=== PATIENT | male | born 1935 | race Caucasian/White ===

== ENCOUNTER 2017-02-02 05:43 | Day surgery (SDC) | payer OTHER, BC ==
[~2017-02-02] VITALS: Ht 182.9 cm; Wt 92.5 kg
--- NOTE | ~2017-02-02 | S ---
[facility] [place] [address] SURGICAL PATH RPT PROCEDURE Name: NAVIN HATFIELD Room #: DEP [facility]..#: [id number] Admission: 02/02/17 Date of : 35 Discharge: 02/02/17 Report #: [id number] Path Case #: [id number] PATHOLOGY REPORT COLLECTION DATE: 02/02/2017 RECEIVED DATE: 02/02/2017 SUBMITTING PHYS: Dr. Franco Gaytan OTHER PHYS: Dr. Kwame Willard SPECIMEN(S) RECEIVED: A.Basal cell carcinoma left lower lid * * * * * * * * * * * * FINAL DIAGNOSIS: Skin, left lower lid, excision: - SQUAMOUS CELL CARCINOMA IN SITU. - Margins of resection free of malignancy. (IUV:mgr; 02/04/2017) PATHOLOGIST: Melia Donohue M.D. REPORT ELECTRONICALLY SIGNED BY: Melia Donohue M.D. DATE/TIME: 02/04/2017 15:59 * * * * * * * * * * * * GROSS PATHOLOGY: The specimen is received fresh labeled "Navin Hatfield, basal cell carcinoma left lower lid" consists of a piece of skin that measures 0.6 x 0.4 x 0.2 cm. It is oriented by Dr. Gaytan as superior, inferior, lateral and medial. The superior margin is inked red, inferior is yellow, lateral is blue, and medial is green, and the deep is black. The specimen is serially sectioned and submitted for a frozen section as FSA1, subsequently as cassette labeled A1. ([facility]; 02/02/2017) FROZEN SECTION DIAGNOSIS: (Any Sanchez M.D.) FSA1, Skin, "Basal cell carcinoma left lower lid": - Margins free. These findings were discussed with Dr. Gaytan, and a written report was placed in the patient's chart. ([facility]:mg; 02/02/2017) Testing performed by [facility] at [facility] [address] [place] [address] [place] [address] SURGICAL PATH RPT PROCEDURE Name: NAVIN HATFIELD [id number] Admission: 02/02/17 Date of : 35 Discharge: 02/02/17 Report #: [id number] Path Case #: [id number] CLINICAL HISTORY: Basal cell carcinoma left lower lid INITIAL CPT CODE(S): A; 85392, 53836 Professional services performed by [facility] at [facility] [address] [place] [address] Technical services performed by [facility] at [address] [place] [address], [place] [address]. [facility] [address] [place] [address] PHONE: [phone] DIRECTOR: Severiano Anton M.D. * * * END OF REPORT * * *
[~2017-02-02 05:43] MED LIST: ADVAIR 250-501 EACH INH; ARAVA20 MG PO; AZELASTINE137 MCG/0. NASAL; CALCIUM 500 +1 EAC5 PO; DAILY MULTIPLE1 EACH PO; FLOMAX0.4 MG PO; LOSARTAN-HCTZ1 EAC2 PO; PREDNISONE 5 MG5 M1 PO; PRESERVISION A1 EAC2 PO; VITAMIN D3400 UNIT PO; VITAMINC500 PO
[2017-02-02 11:45] LABS: CALCIUM 9.1 mg/dL (8.5-10.1); CREATININE 0.9 mg/dL (0.7-1.3); POTASSIUM 4.1 mmol/L (3.5-5.1)
[2017-02-02 12:41] VITALS: BP 138/85
== END 2017-02-02 11:00 | disposition home or self-care (01) ==
LOC: TBA 05:43 → OR 05:43 → TBA 05:44 → OR 08:25
PROVIDERS: Ophthalmology
DX: D04.12 Carcinoma in situ of skin of left eyelid, including canthus (principal); H02.005 Unspecified entropion of left lower eyelid; I10 Essential (primary) hypertension; E78.5 Hyperlipidemia, unspecified; J44.9 Chronic obstructive pulmonary disease, unspecified; M06.9 Rheumatoid arthritis, unspecified; M81.0 Age-related osteoporosis without current pathological fracture; Z85.53 Personal history of malignant neoplasm of renal pelvis; Z98.41 Cataract extraction status, right eye; Z98.42 Cataract extraction status, left eye; Z96.1 Presence of intraocular lens; Z98.890 Other specified postprocedural states; Z87.891 Personal history of nicotine dependence; Z79.899 Other long term (current) drug therapy
CPT/HCPCS: 50010; 50101; 50386; 50398; 51636; 56527; 56531; 62110; 62850; 70005

== ENCOUNTER 2017-10-19 05:35 | Day surgery (SDC) | payer OTHER, BC ==
[~2017-10-19] VITALS: Ht 180.3 cm; Wt 92.5 kg
--- NOTE | ~2017-10-19 | O ---
[facility] [place] [address] OPERATIVE REPORT Name: TOY LOVE Room #: DEP [facility].#: [id number] Admission: 10/19/17 Attend Phys: Franco Gaytan MD Discharge: 10/19/17 Date of : 35 Report #: [id number] THIS REPORT FOR: //name// CC: JOURDAN Gaytan DATE OF SERVICE: 10/19/2017 PREOPERATIVE DIAGNOSIS: Tumor of left lower lid and cheek. POSTOPERATIVE DIAGNOSIS: Tumor of left lower lid and cheek. PROCEDURE: Excision of tumor of left lower lid and cheek with frozen sections and myocutaneous flap repair of defect. SURGEON: Franco Gaytan M.D. KAIAKO KURA TUARUA: None. ANESTHESIA: MAC. COMPLICATIONS: None. INDICATIONS FOR SURGERY: This pleasant is an 82-year-old gentleman, has a nodular ulcerative lesion in his left lower lid just inferior to a prior basal cell resection. He presents today for excision of this lesion, which is presumed to be another basal cell carcinoma. Frozen sections are planned in addition to repair of the defect with a myocutaneous flap. Informed consent was obtained to include but not limited to potential risk for loss of vision, bleeding, infection, failure to improve the problem and the potential need for further surgery or treatment. DESCRIPTION OF PROCEDURE: The patient was taken to the operating room where 2% Xylocaine with epinephrine mixed with equal parts of 0.75% Marcaine with Wydase was administered transcutaneously to the left medial canthus, the left lower lid and the left cheek. The patient was subsequently prepped and draped in the usual sterile fashion. A fine tip skin marking pen was then utilized to outline the lesion including 1-2 mm of normal appearing tissue. The incisions were then made with a 15 blade in a plane parallel to the facial artery. The specimen was then from the underlying musculature with a Jeremy scissor sharply. The specimen was then oriented on a drawing for the waiting pathologist as hemostasis was achieved in the field with monopolar cautery. The pathologist snap froze the specimen and found out that the margins of concern, medially, laterally and inferiorly, were all clear of tumor and the lesion did appear to [address] [address] OPERATIVE REPORT Name: TOY LOVE Room #: DEP [facility] [place] [place] M.R.#: [id number] Admission: 10/19/17 Attend Phys: Franco Gaytan MD Discharge: 10/19/17 Date of : 35 Report #: [id number] be a squamoproliferative cancer such as a basal cell carcinoma. With that information in hand, the tissue laterally was then undermined to allow myocutaneous flap to be developed. Hemostasis was then re-achieved. The flap was then advanced and closed with interrupted 6-0 plain gut sutures. The wounds were then cleaned and dressed with erythromycin ointment. The patient subsequently transported to the recovery area having tolerated the procedures well with no anesthetic or operative complications being noted. <ELECTRONICALLY SIGNED> By: Franco Gaytan MD 10/26/17 0616 [id number] 1421 Franco Gaytan MD /nt
--- NOTE | ~2017-10-19 | S ---
[facility] [place] [address] SURGICAL PATH RPT PROCEDURE Name: NAVIN HATFIELD Room #: DEP [facility] M.R.#: [id number] Admission: 10/19/17 Date of : 35 Discharge: 10/19/17 Report #: [id number] Path Case #: [id number] PATHOLOGY REPORT COLLECTION DATE: 10/19/2017 RECEIVED DATE: 10/19/2017 SUBMITTING PHYS: Dr. Franco Gaytan OTHER PHYS: Dr. Kwame Willard SPECIMEN(S) RECEIVED: A.L lower lid * * * * * * * * * * * * FINAL DIAGNOSIS: Skin and subcutaneous tissue, "L lower lid", excision: - Basal cell carcinoma, nodular subtype; medial, lateral and deep margins free of invasive tumor. (see comment) (CLW:chris; 10/20/2017) COMMENT: Sections show skin and subcutaneous tissue with a nodular basal cell carcinoma. The medial, lateral and deep margins are free of invasive tumor. The tip margin sections have patchy areas of tumor present. No tumor is identified on ink. As discussed in the operating room, tip surgical margins are not true margins and the true superior and inferior margins are difficult to accurately evaluate. The remaining epidermis has prominent actinic changes. Clinical correlation is required. (CLW:chris; 10/20/2017) PATHOLOGIST: Shalonda Kelsey M.D. REPORT ELECTRONICALLY SIGNED BY: Shalonda Kelsey M.D. DATE/TIME: 10/20/2017 16:17 * * * * * * * * * * * * GROSS PATHOLOGY: The specimen is received fresh from the OR labeled "Navin Hatfield and lesion left lower lid". It consists of an oriented ellipse of enriquez-white skin and subcutaneous tissue measuring 0.9 x 0.5 cm. It is excised to a depth of 0.3 cm. The skin is remarkable for a vague 0.4 cm irregular lesion. The superior is designated 12:00. The margins are inked as follows: 12-6:00 - blue, 6-9:00 - black and 9-12:00 - orange. The specimen is serially sectioned and entirely submitted for one frozen section. The frozen section is then submitted as FSA1. (CLW:genna; 10/20/2017) FROZEN SECTION DIAGNOSIS: [address] [address] SURGICAL PATH RPT PROCEDURE Name: NAVIN HATFIELD Room #: DEP [facility].Joel.#: [id number] Admission: 10/19/17 Date of : 35 Discharge: 10/19/17 Report #: [id number] Path Case #: [id number] (Shalonda Kelsey M.D.) FSA1. "Lesion left lower lid": - Squamoproliferative lesion consistent with basal cell carcinoma; medial and lateral and deep margins free of invasive tumor. The case is discussed with Dr. Franco Gaytan in the operating room and a written report is placed in the patient's chart. Testing performed by [facility] at [facility] [address] [place] [address] CLINICAL HISTORY: Basal cell carcinoma INITIAL CPT CODE(S): A; 53779, 52220 Professional services performed by [facility] at [facility] [address] [place] [address] Technical services performed by [facility] at [address] [place] [address], [address], [place] [address]. [facility] [address] [place] [address] PHONE: [phone] DIRECTOR: Severiano Anton M.D. * * * END OF REPORT * * *
[~2017-10-19 05:35] MED LIST changes: +LEFLUNOMIDE20 MG PO
[2017-10-19 12:21] VITALS: BP 145/82
== END 2017-10-19 14:45 | disposition home or self-care (01) ==
LOC: TBA 05:35 → OR 05:35
DX: C44.119 Basal cell carcinoma of skin of left eyelid, including canthus (principal); I10 Essential (primary) hypertension; J43.9 Emphysema, unspecified; M06.9 Rheumatoid arthritis, unspecified; Z87.891 Personal history of nicotine dependence; Z98.41 Cataract extraction status, right eye; Z85.828 Personal history of other malignant neoplasm of skin; Z85.528 Personal history of other malignant neoplasm of kidney; Z98.42 Cataract extraction status, left eye; Z98.890 Other specified postprocedural states; Z88.0 Allergy status to penicillin; Z79.899 Other long term (current) drug therapy
CPT/HCPCS: 50010; 50101; 50386; 50398; 51636; 56531; 62110; 62850; 70005